=== PATIENT | female | born 1990 | race Caucasian/White ===

== ENCOUNTER 2017-01-06 22:16 | Emergency (ER) | payer OTHER ==
[2017-01-06 22:36] VITALS: BP 105/63; PULSE 79; RESP 16; TEMP 98.4; O2SAT 99
[2017-01-06] MEDS ORDERED: IBUPROFEN 200 MG TAB PO ONE (22:36)
--- NOTE | 2017-01-06 22:45 | UCPHY ---
H & P Time Seen by Provider: 01/06/17 22:29 Patient Type: New HPI/ROS: This patient fell down 4 stairs 4 days ago landing on her right lateral ribs verses a stair with pain in that area since then 8/10 peak intensity. She was seen that same day at [facility] over they prescribed ibuprofen 800 mg tabs. She reports that she has not had much relief from the ibuprofen and came in for evaluation tonight after phone call them with encouraged her to come in to obtain potential radiographs to rule out fracture. She admits that she has not had any ibuprofen in the last 6 hours. No other pain medications either. ROS: She denies any head injury from the fall. No neck pain. No midline back pain. No shortness of breath. No hematemesis. No hemoptysis No belly pain. No nausea vomiting. No focal numbness tingling or weakness. A 7 point ROS is otherwise negative. Past Medical/Surgical History: Otherwise healthy Smoking Status: Never smoked Physical Exam: Physical Exam Vital signs are normal. General: No acute distress HEENT: Atraumatic. Eyes: Pupils equal and react to light. Extraocular motions are intact. Neck no midline tenderness supple Back: Nontender Lungs: Clear to auscultation bilaterally. She has right lateral rib tenderness -moderate. No respiratory distress. Cardiac: Regular rate and rhythm with no murmur gallop or rub. Brisk capillary refill is intact throughout. Abdomen: Soft nontender Skin: No rash or pallor. Neuro: Alert and oriented x3 with no sensorimotor deficits. Initial differential diagnosis: Rib contusion versus fracture Constitutional: Initial Vital Signs Temperature (C) 36.9 C 01/06/17 22:30 Heart Rate 79 01/06/17 22:30 Respiratory Rate 16 01/06/17 22:30 Blood Pressure 105/63 01/06/17 22:30 O2 Sat (%) 99 01/06/17 22:30 O2 Delivery Mode Room Air Allergies/Adverse Reactions: No Known Allergies Allergy (Unverified 01/06/17 22:30) Home Medications: Medication Instructions Recorded Methocarbamol [Robaxin 750 mg (*)] 750 - 1,500 mg PO QID PRN #30 tab 01/06/17 MDM/Departure - MDM Diagnostics: Chest x-ray: Normal by my interpretation Medications Given: Discontinued Medications Ibuprofen (Motrin) 600 mg PO EDNOW ONE Stop: 01/06/17 22:37 Last Admin: 01/06/17 22:43 Dose: Not Given ED Course/Re-evaluation: Ibuprofen Vicodin 6 pack for home Counseled patient regarding rib injury. Do not appreciate fracture on the radiograph. No pneumothorax hemothorax or other concerning findings. Suspect that she has a cartilage injury, intercostal injury or nondisplaced fracture not evident on x-ray causing her symptoms. - Depart Disposition: Home, Routine, Self-Care Clinical Impression: Rib injury Condition: Good Instructions: Rib Contusion (ED) Additional Instructions: Diagnosis: Chest wall injury Plan: Ibuprofen Methocarbamol muscle relaxant if needed Tylenol or Vicodin in addition if needed. No driving, alcohol work on methocarbamol or Vicodin. Take a deep breath every 10-15 minutes to prevent pneumonia Symptoms should gradually improve over the next 10-14 days. Go to The emergency department if you have any significant worsening despite treatment plan Prescriptions: Methocarbamol [Robaxin 750 mg (*)] 750 - 1,500 mg PO QID PRN #30 tab PRN Reason: Muscle Spasms Referrals: BHAVANI LEAL,. [Primary Care Provider] - As per Instructions - PQRS PQRS Measurement: NA
[2017-01-06] MEDS ORDERED: HYDROCOD/APAP 5/325 PREPACK#6 BTL TAKEHOME ONE (22:54)
== END 2017-01-06 23:09 | disposition home or self-care (01) ==
LOC: CED 22:16
DX: S20.219A Contusion of unspecified front wall of thorax, initial encounter (principal); W10.9XXA Fall (on) (from) unspecified stairs and steps, initial encounter
CPT/HCPCS: 71020-PO; 99203-PO; G0463-PO